=== PATIENT | male | born 1965 | race African-American/Black ===

== ENCOUNTER 2024-02-29 22:32 | Inpatient (IN) | payer MEDICAID ==
[~2024-02-29] VITALS: Ht 193 cm; Wt 112.9 kg
[2024-02-29 23:24] LABS: BG CARBOXYHEMOGLOBIN 0.6 % (0.5-1.5); BG DEOXYHEMOGLOBIN 1.3 % (0.0-5.0); BG FRACTION INSPIRED OXYGEN 36; BG METHEMOGLOBIN 0.3 % (0.0-1.5); BG OXYGEN SATURATION 98.7 % (92.0-98.5); BG OXYHEMOGLOBIN 97.8 % (94.0-97.0); BG PCO2 37.5 mmHg (35.0-45.0); BG PH 7.441 (7.350-7.450); BG PO2 116.4 mmHg (75.0-100.0); BG SAMPLE SITE RIGHT RADIAL; BG TOTAL HEMOGLOBIN 13.5 g/dL (12.0-18.0); BG VENT MODE NASAL CANNULA
[2024-02-29 23:58] LABS: EOSINOPHILS % 1.9 % (0.0-5.0); HEMATOCRIT. 39.2 % (42.0-52.0); HEMOGLOBIN. 12.7 g/dL (14.0-18.0); LYMPHOCYTES % 12.8 % (20.0-50.0); MEAN CORPUSCULAR HEMOGLOBIN 29.9 pg (28.0-32.0); MEAN CORPUSCULAR HGB CONC 32.4 g/dL (31.0-37.0); MEAN CORPUSCULAR VOLUME 92.1 fL (80.0-94.0); NEUTROPHILS % 73.3 % (40.0-76.0); RED BLOOD CELL COUNT 4.26 mill/uL (4.7-6.1); RED CELL DISTRIBUTION WIDTH 16.5 % (11.6-14.6); WHITE BLOOD COUNT 6.9 x1000/uL (4.5-11.0)
[2024-03-01 00:03] LABS: DIFFERENTIAL COMMENT 1
[2024-03-01 00:10] LABS: INR 1.3; PARTIAL THROMBOPLASTIN TIME 29.6 sec (23.4-31.0); PROTHROMBIN TIME 14.2 sec (9.6-11.0)
[2024-03-01 00:57] LABS: CLARITY URINE CLEAR (CLEAR); COLOR URINE YELLOW (YELLOW); GLUCOSE URINE 1+ (NEGATIVE); KETONES URINE NEGATIVE (NEGATIVE); LEUKOCYTE ESTERASE URINE NEGATIVE (NEGATIVE); NITRITE URINE NEGATIVE (NEGATIVE); OCCULT BLOOD URINE NEGATIVE (NEGATIVE); PROTEIN URINE NEGATIVE (NEGATIVE); SPECIFIC GRAVITY URINE 1.005 (1.005-1.030)
[2024-03-01] MEDS ORDERED: CEFEPIME 2GM IN DEXT 5% 100ML IV ONE (01:00)
[2024-03-01 01:09] LABS: *AMPHETAMINES SCREEN URINE NEGATIVE (NEGATIVE); *BARBITURATES SCREEN URINE NEGATIVE (NEGATIVE); *BENZODIAZEPINES SCREEN URINE NEGATIVE (NEGATIVE); *COCAINE SCREEN URINE NEGATIVE (NEGATIVE); CANNABINOID URINE SCREEN NEGATIVE (NEGATIVE); ECSTASY MDMA SCREEN URINE NEGATIVE (NEGATIVE); METHADONE URINE SCREEN Neg (NEGATIVE); OPIATES URINE SCREEN NEGATIVE (NEGATIVE); PHENCYCLIDINE URINE SCREEN NEGATIVE (NEGATIVE)
[2024-03-01 01:12] LABS: MEAN PLATELET VOLUME 11.1 fl (7.4-10.4); PLATELET 159 x1000/uL (130-400)
[2024-03-01 01:19] LABS: BACTERIA URINE NONE SEEN; RBC URINE 0-2 /hpf (0-2); SQUAMOUS EPITHELIAL CELL URINE FEW /lpf (RARE/1+); WBC URINE 0-2 /hpf (0-2)
[2024-03-01 02:07] LABS: ALANINE AMINOTRANSFERASE 17 IU/L (10-49); ASPARTATE AMINOTRANSFERASE 30 IU/L (<34); BILIRUBIN TOTAL 1.8 mg/dL (0.1-1.0); CALCIUM 8.4 mg/dL (8.7-10.4); CARBON DIOXIDE 18 mEq/L (21-32); CHLORIDE 106 mEq/L (98-107); GLUCOSE 83 mg/dL (70-105); POTASSIUM 3.2 mEq/L (3.5-5.1); PROTEIN TOTAL 7.2 g/dL (6.0-8.3); SODIUM 138 mEq/L (136-145); UREA NITROGEN BLOOD 16 mg/dL (9-23)
[2024-03-01 02:16] LABS: TROPONIN I HIGH SENSITIVITY 494 ng/L (3.0-53)
[2024-03-01] MEDS: CEFEPIME 2GM/100ML 100 ML IV NR (02:25)
[2024-03-01] MEDS: ASPIRIN 325MG EC TABLET PO ONE (02:59)
[2024-03-01] MEDS ORDERED: ACETAMINOPHEN 325MG TABLET PO PRN (10:45)
[2024-03-01] MEDS: AMLODIPINE 5MG TABLET PO SCH (10:45)
[2024-03-01] MEDS ORDERED: DOCUSATE SODIUM 100MG CAPSULE PO PRN (10:45)
[2024-03-01] MEDS ORDERED: FUROSEMIDE 20MG/2ML VIAL IVP SCH (10:45)
[2024-03-01] MEDS: SODIUM BICARBONATE 8.4% 1 MEQ/ML 50ML SYR IV NR (10:45)
[2024-03-01] MEDS ORDERED: CLONIDINE 0.1MG TABLET PO PRN (11:00)
[2024-03-01] MEDS: CEFTRIAXONE 1GM/50ML 50 ML IV SCH (11:00)
[2024-03-01 11:15] LABS: BASOPHILS % 1.2 % (0.0-2.0); EOSINOPHILS % 2.3 % (0.0-5.0); HEMATOCRIT. 39.1 % (42.0-52.0); HEMOGLOBIN. 12.9 g/dL (14.0-18.0); LYMPHOCYTES % 15.4 % (20.0-50.0); MEAN CORPUSCULAR HEMOGLOBIN 29.5 pg (28.0-32.0); MEAN CORPUSCULAR VOLUME 89.5 fL (80.0-94.0); MEAN PLATELET VOLUME 11.1 fl (7.4-10.4); MONOCYTES % 8.3 % (2.0-8.0); NEUTROPHILS % 72.8 % (40.0-76.0); PLATELET 163 x1000/uL (130-400); RED BLOOD CELL COUNT 4.37 mill/uL (4.7-6.1); RED CELL DISTRIBUTION WIDTH 16.7 % (11.6-14.6); WHITE BLOOD COUNT 6.4 x1000/uL (4.5-11.0)
[2024-03-01 11:37] LABS: ALANINE AMINOTRANSFERASE 14 IU/L (10-49); ALBUMIN 3.8 g/dL (3.2-4.8); ASPARTATE AMINOTRANSFERASE 21 IU/L (<34); BILIRUBIN TOTAL 2.2 mg/dL (0.1-1.0); CALCIUM 8.4 mg/dL (8.7-10.4); CARBON DIOXIDE 23 mEq/L (21-32); CHLORIDE 105 mEq/L (98-107); CREATININE 1.8 mg/dL (0.6-1.3); GLUCOSE 112 mg/dL (70-105); POTASSIUM 3.1 mEq/L (3.5-5.1); PROTEIN TOTAL 6.8 g/dL (6.0-8.3); SODIUM 138 mEq/L (136-145); UREA NITROGEN BLOOD 18 mg/dL (9-23)
[2024-03-01] MEDS ORDERED: FUROSEMIDE 40MG/4ML VIAL IVP SCH (12:00)
[2024-03-01] MEDS: FUROSEMIDE 40MG/4ML VIAL IVP SCH (12:50)
[2024-03-01] MEDS: DEXT 5%/0.45% NACL 1000ML 1,000 ML IV SCH (12:51)
[2024-03-01] MEDS: AZITHROMYCIN 500MG/250ML 250 ML IV SCH (14:36)
[2024-03-01] MEDS: NITROGLYCERIN OINT 1GM/INCH UDPKT TD SCH (15:18)
[2024-03-01 17:00] VITALS: BP 119/80; PULSE 78; RESP 18; TEMP 96.1
[2024-03-01] MEDS ORDERED: DEXTROSE 50% WATER 50ML SYRINGE IV PRN (17:30)
[2024-03-01] MEDS: INSULIN LISPRO 100 UNITS/ML SUBCUT SCH (17:45)
[2024-03-01] MEDS: BLOOD SUGAR DIAGNOSTIC STRIP TEST SCH (17:45)
[2024-03-01 18:00] VITALS: BP 119/80; PULSE 78; RESP 20; TEMP 96.1
[2024-03-01] MEDS ORDERED: EMPA10TA MT (18:11)
[2024-03-01] MEDS ORDERED: FURO80TA87 MT (18:11)
[2024-03-01] MEDS ORDERED: METF-414 MT (18:11)
[2024-03-01] MEDS ORDERED: METO25TA6 MT (18:11)
[2024-03-01] MEDS ORDERED: AMIO100T2 PO (18:11)
[2024-03-01] MEDS ORDERED: ATOR10TA69 MT (18:11)
[2024-03-01] MEDS: POTASSIUM CHLORIDE 20MEQ TABLET SR PO NR (18:46)
[2024-03-01] MEDS: APIXABAN 5 MG TABLET PO SCH (18:46)
[2024-03-01 20:00] VITALS: BP 118/78; PULSE 81; RESP 16; TEMP 97.9
[2024-03-01] MEDS: ACETAMINOPHEN 325MG TABLET PO PRN (21:04)
[2024-03-01 22:16] LABS: CREATINE KINASE MB FRACTION 3.7 ng/mL (0.5-3.6)
[2024-03-01 22:48] LABS: HEPATITIS B SURFACE ANTIGEN NEGATIVE (Negative); HEPATITIS C AB NON REACTIVE (Neg) (Negative)
[2024-03-02] VITALS: BP 102/75; PULSE 69; RESP 16; TEMP 97.9
[2024-03-02 04:00] VITALS: BP 124/82; PULSE 81; RESP 16; TEMP 97.6
[2024-03-02 07:56] VITALS: BP 116/88; PULSE 78; RESP 18; TEMP 97.6
[2024-03-02 07:56] LABS: BASOPHILS % 1.3 % (0.0-2.0); EOSINOPHILS % 1.9 % (0.0-5.0); HEMATOCRIT. 37.3 % (42.0-52.0); HEMOGLOBIN. 12.3 g/dL (14.0-18.0); LYMPHOCYTES % 13.9 % (20.0-50.0); MEAN CORPUSCULAR HEMOGLOBIN 29.2 pg (28.0-32.0); MEAN CORPUSCULAR HGB CONC 32.9 g/dL (31.0-37.0); MEAN CORPUSCULAR VOLUME 88.8 fL (80.0-94.0); MEAN PLATELET VOLUME 11.5 fl (7.4-10.4); MONOCYTES % 7.4 % (2.0-8.0); NEUTROPHILS % 75.5 % (40.0-76.0); PLATELET 157 x1000/uL (130-400); RED CELL DISTRIBUTION WIDTH 16.4 % (11.6-14.6); WHITE BLOOD COUNT 6.8 x1000/uL (4.5-11.0)
[2024-03-02 08:33] LABS: CREATINE KINASE MB FRACTION 4.2 ng/mL (0.5-3.6)
[2024-03-02] MEDS: HYDROCODONE/ACETAMINOPHEN 5/325MG TABLET PO NR (08:42)
[2024-03-02] MEDS: ASPIRIN 81MG TABLET PO SCH (08:42)
[2024-03-02 08:44] LABS: CALCIUM 8.5 mg/dL (8.7-10.4); CREATININE 2.1 mg/dL (0.6-1.3); POTASSIUM 3.3 mEq/L (3.5-5.1)
[2024-03-02 11:42] VITALS: BP 122/88; PULSE 68; RESP 20; TEMP 97.6
[2024-03-02] MEDS: POTASSIUM CHLORIDE 20MEQ/PACKET PO NR (11:56)
[2024-03-02 16:00] VITALS: BP 121/70; PULSE 86; RESP 20; TEMP 97.6
[2024-03-02] MEDS: DOXYCYCLINE 100MG/100ML 100 ML IV SCH (17:16)
[2024-03-02] MEDS: BUMETANIDE 1MG/4ML VIAL IV SCH (17:16)
[2024-03-02] MEDS ORDERED: FUROSEMIDE 100MG/10ML VIAL IVP SCH (18:00)
[2024-03-02 20:00] VITALS: BP 118/81; PULSE 80; RESP 16; TEMP 96.4
[2024-03-03] VITALS: BP 123/86; PULSE 86; RESP 16; TEMP 97.5
[2024-03-03 04:00] VITALS: BP 117/81; PULSE 84; RESP 18; TEMP 97.9
[2024-03-03 06:37] LABS: BASOPHILS % 1.2 % (0.0-2.0); HEMATOCRIT. 36.9 % (42.0-52.0); HEMOGLOBIN. 12.2 g/dL (14.0-18.0); LYMPHOCYTES % 16.2 % (20.0-50.0); MEAN CORPUSCULAR HEMOGLOBIN 29.4 pg (28.0-32.0); MEAN PLATELET VOLUME 11.4 fl (7.4-10.4); MONOCYTES % 8.8 % (2.0-8.0); NEUTROPHILS % 70.8 % (40.0-76.0); PLATELET 138 x1000/uL (130-400); RED BLOOD CELL COUNT 4.15 mill/uL (4.7-6.1); RED CELL DISTRIBUTION WIDTH 16.5 % (11.6-14.6); WHITE BLOOD COUNT 5.7 x1000/uL (4.5-11.0)
[2024-03-03 07:05] LABS: CALCIUM 8.5 mg/dL (8.7-10.4); CREATININE 1.8 mg/dL (0.6-1.3); POTASSIUM 3.3 mEq/L (3.5-5.1)
[2024-03-03 08:00] VITALS: BP 128/85; PULSE 85; RESP 16; TEMP 97.8
[2024-03-03] MEDS ORDERED: NALOXONE HCL 0.4MG/ML VIAL IV PRN (10:45)
[2024-03-03] MEDS: HYDROCODONE/ACETAMINOPHEN 5/325MG TABLET PO PRN (11:03)
[2024-03-03 12:00] VITALS: BP 118/80; PULSE 79; RESP 18; TEMP 97
[2024-03-03] MEDS: POTASSIUM CHLORIDE 20MEQ/PACKET PO NR (14:27)
[2024-03-03 16:00] VITALS: BP 129/97; PULSE 86; RESP 20; TEMP 97.3
[2024-03-03 20:00] VITALS: BP 121/83; PULSE 84; RESP 20; TEMP 97.4
[2024-03-04] VITALS (7 sets, daily range): BP systolic 118–144; BP diastolic 74–98; PULSE 64–84; RESP 18–22; TEMP 97.5–98.6; O2SAT 97
[2024-03-04 06:07] LABS: BASOPHILS % 1.1 % (0.0-2.0); CALCIUM 8.3 mg/dL (8.7-10.4); CARBON DIOXIDE 25 mEq/L (21-32); CHLORIDE 105 mEq/L (98-107); CREATININE 1.6 mg/dL (0.6-1.3); EOSINOPHILS % 2.4 % (0.0-5.0); GLUCOSE 84 mg/dL (70-105); HEMATOCRIT. 37.3 % (42.0-52.0); HEMOGLOBIN. 12.1 g/dL (14.0-18.0); LYMPHOCYTES % 16.8 % (20.0-50.0); MEAN CORPUSCULAR HEMOGLOBIN 29.5 pg (28.0-32.0); MEAN CORPUSCULAR HGB CONC 32.5 g/dL (31.0-37.0); MEAN CORPUSCULAR VOLUME 90.7 fL (80.0-94.0); MEAN PLATELET VOLUME 11.4 fl (7.4-10.4); MONOCYTES % 7.4 % (2.0-8.0); NEUTROPHILS % 72.3 % (40.0-76.0); PHOSPHORUS 3.1 mg/dL (2.5-4.9); PLATELET 166 x1000/uL (130-400); POTASSIUM 3.8 mEq/L (3.5-5.1); RED BLOOD CELL COUNT 4.11 mill/uL (4.7-6.1); RED CELL DISTRIBUTION WIDTH 16.1 % (11.6-14.6); SODIUM 139 mEq/L (136-145); UREA NITROGEN BLOOD 20 mg/dL (9-23); WHITE BLOOD COUNT 5.8 x1000/uL (4.5-11.0)
[2024-03-04] MEDS: IPRATROPIUM/ALBUTEROL 0.5-3(2.5)MG/3ML NEB HHN PRN (14:15)
[2024-03-04] MEDS ORDERED: AMI2 PO (17:05)
[2024-03-04] MEDS ORDERED: APIX5TAB MT (17:07)
[2024-03-04] MEDS: BUMETANIDE 0.25MG/ML 2ML VIAL IV NR (18:55)
[2024-03-05] VITALS: BP 132/92; PULSE 85; RESP 20; TEMP 97.7
[2024-03-05 04:00] VITALS: BP 137/84; PULSE 53; RESP 20; TEMP 97.6
[2024-03-05 07:11] LABS: BASOPHILS % 0.7 % (0.0-2.0); EOSINOPHILS % 1.3 % (0.0-5.0); HEMATOCRIT. 36.2 % (42.0-52.0); HEMOGLOBIN. 11.8 g/dL (14.0-18.0); LYMPHOCYTES % 12.3 % (20.0-50.0); MEAN CORPUSCULAR HEMOGLOBIN 29.2 pg (28.0-32.0); MEAN CORPUSCULAR HGB CONC 32.7 g/dL (31.0-37.0); MEAN CORPUSCULAR VOLUME 89.4 fL (80.0-94.0); MEAN PLATELET VOLUME 11.1 fl (7.4-10.4); MONOCYTES % 8.2 % (2.0-8.0); NEUTROPHILS % 77.5 % (40.0-76.0); PLATELET 147 x1000/uL (130-400); RED BLOOD CELL COUNT 4.05 mill/uL (4.7-6.1); RED CELL DISTRIBUTION WIDTH 16.2 % (11.6-14.6); WHITE BLOOD COUNT 6.9 x1000/uL (4.5-11.0)
[2024-03-05 07:36] LABS: CALCIUM 8.5 mg/dL (8.7-10.4); CARBON DIOXIDE 24 mEq/L (21-32); CHLORIDE 107 mEq/L (98-107); CREATININE 1.5 mg/dL (0.6-1.3); GLUCOSE 86 mg/dL (70-105); PHOSPHORUS 2.9 mg/dL (2.5-4.9); POTASSIUM 4.5 mEq/L (3.5-5.1); SODIUM 137 mEq/L (136-145); UREA NITROGEN BLOOD 19 mg/dL (9-23)
[2024-03-05 08:00] VITALS: BP 116/80; PULSE 85; RESP 16; TEMP 98.6
[2024-03-05] MEDS ORDERED: BUME1TAB9 MT (12:23)
[2024-03-05] MEDS ORDERED: AMLO5TAB88 PO (12:23)
[2024-03-05] MEDS: BUMETANIDE 1MG/4ML VIAL IV NR (15:55)
[2024-03-05] MEDS: METOPROLOL TARTRATE 25MG TABLET PO SCH (15:55)
[2024-03-05 16:00] VITALS: BP 116/75; PULSE 70; RESP 20; TEMP 99
[2024-03-05 18:39] VITALS: PULSE 53; RESP 20
[2024-03-05 20:00] VITALS: BP 129/80; PULSE 101; RESP 19; TEMP 98.6
[2024-03-06] VITALS: BP 100/65; PULSE 83; RESP 19; TEMP 98.8
[2024-03-06 04:00] VITALS: BP 109/80; PULSE 89; RESP 18; TEMP 98.2
[2024-03-06] MEDS: BUMETANIDE 1MG TABLET PO SCH (06:13)
[2024-03-06 08:00] VITALS: BP 114/61; PULSE 88; RESP 20; TEMP 98.1
[2024-03-06] MEDS: SPIRONOLACTONE 25MG TABLET PO SCH (08:26)
[2024-03-06] MEDS: ONDANSETRON HCL 4MG/2ML INJ IV PRN (09:56)
[2024-03-06 12:00] VITALS: BP 124/72; PULSE 55; RESP 19; TEMP 97.5
[2024-03-06] MEDS: METOPROLOL TARTRATE 5MG/5ML VIAL IV PRN (15:13)
[2024-03-06 16:00] VITALS: BP 100/63; PULSE 130; RESP 18; TEMP 97.4
[2024-03-06 16:15] VITALS: BP 100/63; PULSE 130; TEMP 97.5; O2SAT 98
[2024-03-06] MEDS: DIGOXIN 250MCG TABLET PO NR (16:39)
== END 2024-03-06 19:18 | disposition home or self-care (01) | DRG 198 ==
LOC: ER 22:32 → EDBEDREQTM 03-01 02:41 → EDBEDREQ 03-01 02:41 → 8WST 03-01 17:01
PROVIDERS: ADMIT Internal Medicine; ATTEND Internal Medicine
DX: I24.9 Acute ischemic heart disease, unspecified (principal); J96.01 Acute respiratory failure with hypoxia; I50.23 Acute on chronic systolic (congestive) heart failure; N17.9 Acute kidney failure, unspecified; J18.9 Pneumonia, unspecified organism; I42.0 Dilated cardiomyopathy; I13.0 Hypertensive heart and chronic kidney disease with heart failure and stage 1 through stage 4 chronic kidney disease, or unspecified chronic kidney disease; E87.1 Hypo-osmolality and hyponatremia; E11.22 Type 2 diabetes mellitus with diabetic chronic kidney disease; I48.0 Paroxysmal atrial fibrillation; D64.9 Anemia, unspecified; Z20.822 Contact with and (suspected) exposure to COVID-19; E78.5 Hyperlipidemia, unspecified; G47.33 Obstructive sleep apnea (adult) (pediatric); R07.89 Other chest pain; E80.6 Other disorders of bilirubin metabolism; E87.6 Hypokalemia; R07.9 Chest pain, unspecified; N18.9 Chronic kidney disease, unspecified; Z79.01 Long term (current) use of anticoagulants; Z82.49 Family history of ischemic heart disease and other diseases of the circulatory system
CPT/HCPCS: 36415; 36600; 71045; 71250; 76604; 76770; 78580; 80048; 80053; 80061; 80305; 80320; 81003; 82375; 82550; 82553; 82805; 82962; 83036; 83605; 83735; 83880; 84100; 84145; 84484; 85025; 85379; 86705; 87340; 87426; 87804; 93005; 93306; 93970; 94640; 99285; J0456; J0692; J0696; J1815; J1940; J2405; J3490; G0480

== ENCOUNTER 2025-09-05 05:08 | Emergency (ER) | payer MEDICARE, MEDICAID ==
[~2025-09-05] VITALS: Ht 185.4 cm; Wt 87.0 kg
[~2025-09-05 05:08] MED LIST: AMLO5TAB88 PO; APIX5TAB MT; ATOR10TA69 MT; BUME1TAB9 MT; EMPA10TA MT; METF-414 MT; METO25TA6 MT
[2025-09-05 05:11] VITALS: BP 96/52; PULSE 120; RESP 18; O2SAT 99
== END 2025-09-05 06:00 ==
LOC: ER 05:08
DX: I46.9 Cardiac arrest, cause unspecified (principal); E11.9 Type 2 diabetes mellitus without complications; I11.0 Hypertensive heart disease with heart failure; I50.9 Heart failure, unspecified; I25.2 Old myocardial infarction; K92.0 Hematemesis; Z79.01 Long term (current) use of anticoagulants; Z79.84 Long term (current) use of oral hypoglycemic drugs; Z79.899 Other long term (current) drug therapy
CPT/HCPCS: 31500; 36415; 36430; 36680; 82962; 86920; 92950; 93005; 94070; 99291; P9016